=== PATIENT | female | born 1975 | race Caucasian/White ===

== ENCOUNTER 2018-01-31 12:13 | Inpatient (IN) | payer OTHER ==
[2018-01-31 12:50] LABS: BASO # 0.1 10^3/uL (0.0-0.2); BASO % 0.7 % (0.0-1.0); EOS # 0.2 10^3/uL (0.0-0.50); EOS % 2.4 % (0.0-3.0); HEMATOCRIT 27.6 % (36.0-47.0); HEMOGLOBIN 7.7 g/dl (12.0-15.5); IMMATURE GRANULOCYTE % 0.3 % (0-3.0); LYMPH # 2.4 10^3/uL (1.5-4.5); LYMPH % 31.9 % (24.0-44.0); MEAN CORPUSCULAR HEMOGLOBIN 18.4 pg (27.0-33.0); MEAN CORPUSCULAR HGB CONC 27.9 g/dl (32.0-36.5); MEAN CORPUSCULAR VOLUME 65.9 fl (80.0-96.0); MONO # 0.5 10^3/uL (0.0-0.8); MONO % 6.5 % (0.0-5.0); NEUTROPHILS # 4.4 10^3/uL (1.8-7.7); NEUTROPHILS % 58.2 % (36.0-66.0); PLATELET COUNT, AUTOMATED 498 10^3/uL (150-450); RED BLOOD COUNT 4.19 10^6/uL (4.00-5.40); RED CELL DISTRIBUTION WIDTH 17.6 % (11.5-14.5); WHITE BLOOD COUNT 7.6 10^3/uL (4.0-10.0)
[2018-01-31 12:54] LABS: PARTIAL THROMBOPLASTIN TIME 26.6 SECONDS (25.4-37.6); PROTHROMBIN TIME 13.3 SECONDS (12.1-14.4)
[2018-01-31 13:05] LABS: ALBUMIN 3.3 GM/DL (3.2-5.2); ALBUMIN/GLOBULIN RATIO 0.79 (1.00-1.93); ALKALINE PHOSPHATASE 111 U/L (45-117); ALT/SGPT 16 U/L (12-78); ANION GAP 9 MEQ/L (8-16); AST/SGOT 13 U/L (7-37); BILIRUBIN,DIRECT < 0.1 MG/DL (0.0-0.2); BILIRUBIN,TOTAL 0.2 MG/DL (0.2-1.0); BLOOD UREA NITROGEN 9 MG/DL (7-18); CALCIUM LEVEL 8.3 MG/DL (8.5-10.1); CARBON DIOXIDE LEVEL 27 MEQ/L (21-32); CHLORIDE LEVEL 104 MEQ/L (98-107); CK-MB VALUE MASS < 1.0 NG/ML (<3.6); CPK CREATINE PHOSPHOKINASE 98 U/L (26-192); CREATININE FOR GFR 0.74 MG/DL (0.55-1.30); GLOMERULAR FILTRATION RATE > 60.0 (>58); GLUCOSE, FASTING 89 MG/DL (70-100); LIPASE 167 U/L (73-393); MB/CK RELATIVE INDEX 1.02 (< OR =4); POTASSIUM SERUM 3.8 MEQ/L (3.5-5.1); SODIUM LEVEL 140 MEQ/L (136-145); TOTAL PROTEIN 7.5 GM/DL (6.4-8.2); TROPONIN I < 0.02 NG/ML (< 0.10)
[2018-01-31] MEDS: METOPROLOL TART 25 MG TABLET PO (14:40)
[2018-01-31] MEDS: ASPIRIN 325 MG TAB PO (14:47)
[2018-01-31 16:15] LABS: HEMATOCRIT 26.6 % (36.0-47.0); HEMOGLOBIN 7.3 g/dl (12.0-15.5); MEAN CORPUSCULAR HGB CONC 27.4 g/dl (32.0-36.5); MEAN CORPUSCULAR VOLUME 65.7 fl (80.0-96.0); PLATELET COUNT, AUTOMATED 461 10^3/uL (150-450); RED BLOOD COUNT 4.05 10^6/uL (4.00-5.40); RED CELL DISTRIBUTION WIDTH 17.3 % (11.5-14.5); WHITE BLOOD COUNT 6.7 10^3/uL (4.0-10.0)
[2018-01-31 16:48] LABS: CK-MB VALUE MASS < 1.0 NG/ML (<3.6); CPK CREATINE PHOSPHOKINASE 85 U/L (26-192); MB/CK RELATIVE INDEX 1.18 (< OR =4); TROPONIN I < 0.02 NG/ML (< 0.10)
[2018-01-31] MEDS ORDERED: ISOVUE-370 76% 100ML VIAL (Q9967) As Ordered (18:01)
[2018-01-31 18:53] LABS: FERRITIN 2 NG/ML (8-252); IRON (FE) 14 UG/DL (50-170); PERCENT SATURATION 2.9 % (13.2-45.0); TOTAL IRON BINDING CAPACITY 475 UG/DL (250-450)
[2018-01-31] MEDS: LABETALOL HCL 100 MG/20 ML VIAL IV ×2 (18:53→19:30)
[2018-01-31 19:04] LABS: RETIC HEMOGLOBIN EQUIVALENT 17.2 pg (24-36); RETICULOCYTE # 89.3 10^9/L (17-77); RETICULOCYTE % 2.1 % (0.5-1.5)
[2018-01-31 19:22] LABS: IMMEDIATE SPIN CROSSMATCH 1 2
[2018-01-31] MEDS ORDERED: ACETAMINOPHEN TAB 650MG DOSE (2X325MG) PO (20:30)
[2018-01-31] MEDS ORDERED: BISACODYL 5 MG TAB PO (20:30)
[2018-02-01 06:11] LABS: HEMATOCRIT 31.5 % (36.0-47.0); HEMOGLOBIN 8.9 g/dl (12.0-15.5); MEAN CORPUSCULAR HEMOGLOBIN 19.4 pg (27.0-33.0); MEAN CORPUSCULAR HGB CONC 28.3 g/dl (32.0-36.5); MEAN CORPUSCULAR VOLUME 68.8 fl (80.0-96.0); PLATELET COUNT, AUTOMATED 478 10^3/uL (150-450); RED BLOOD COUNT 4.58 10^6/uL (4.00-5.40); RED CELL DISTRIBUTION WIDTH 20.4 % (11.5-14.5); WHITE BLOOD COUNT 8.1 10^3/uL (4.0-10.0)
[2018-02-01 06:25] LABS: ESTIMATED AVERAGE GLUCOSE 111 MG/DL (60-110); HEMOGLOBIN A1c 5.5 %
[2018-02-01 06:30] LABS: ANION GAP 9 MEQ/L (8-16); BLOOD UREA NITROGEN 9 MG/DL (7-18); CALCIUM LEVEL 8.1 MG/DL (8.5-10.1); CARBON DIOXIDE LEVEL 29 MEQ/L (21-32); CHLORIDE LEVEL 105 MEQ/L (98-107); CHOLESTEROL LEVEL 149 MG/DL (<200); CHOLESTEROL RISK RATIO 4.806 (<5); CREATININE FOR GFR 0.79 MG/DL (0.55-1.30); GLOMERULAR FILTRATION RATE > 60.0 (>58); GLUCOSE, FASTING 90 MG/DL (70-100); HDL CHOLESTEROL 31 MG/DL (>40); LDL CHOLESTEROL 93 MG/DL (<100); NON-HDL-C 118 MG/DL; POTASSIUM SERUM 3.8 MEQ/L (3.5-5.1); SODIUM LEVEL 143 MEQ/L (136-145); TRIGLYCERIDES LEVEL 125 MG/DL (<150)
[2018-02-01] MEDS: FERROUS GLUCONATE 324 MG TAB PO (08:33)
[2018-02-01] MEDS: amLODIPine 10 MG TAB PO (08:36)
[2018-02-01] MEDS ORDERED: amLODIPine 5 MG TAB PO (09:00)
[2018-02-01] MEDS: SENOKOT S TAB PO (09:55)
[2018-02-01] MEDS: ASCORBIC ACID 250 MG TAB PO (09:55)
[2018-02-01 12:19] LABS: HEMATOCRIT 31.6 % (36.0-47.0); HEMOGLOBIN 9.2 g/dl (12.0-15.5)
== END 2018-02-01 14:21 | disposition home or self-care (01) | DRG 663 ==
LOC: M ED 12:13 → M ED INP 20:27 → M MSPAV 23:38
PROVIDERS: Hospitalist; Pediatrics
PROC: 30233N1 Transfusion of Nonautologous Red Blood Cells into Peripheral Vein, Percutaneous Approach (ICD-10-PCS; principal; 2018-01-31)
DX: D64.9 Anemia, unspecified (principal); Z68.42 Body mass index [BMI] 45.0-49.9, adult; I10 Essential (primary) hypertension; Z91.040 Latex allergy status; Z91.013 Allergy to seafood; E66.9 Obesity, unspecified; G25.81 Restless legs syndrome; N92.0 Excessive and frequent menstruation with regular cycle; Z79.899 Other long term (current) drug therapy; I16.0 Hypertensive urgency

== ENCOUNTER 2018-02-05 14:00 | Emergency (ER) | payer OTHER ==
[2018-02-05 16:33] LABS: BASO # 0.1 10^3/uL (0.0-0.2); BASO % 0.5 % (0.0-1.0); EOS # 0.2 10^3/uL (0.0-0.50); EOS % 2.4 % (0.0-3.0); HEMATOCRIT 35.9 % (36.0-47.0); HEMOGLOBIN 10.2 g/dl (12.0-15.5); IMMATURE GRANULOCYTE % 0.2 % (0-3.0); LYMPH # 2.5 10^3/uL (1.5-4.5); LYMPH % 24.5 % (24.0-44.0); MEAN CORPUSCULAR HGB CONC 28.4 g/dl (32.0-36.5); MEAN CORPUSCULAR VOLUME 70.3 fl (80.0-96.0); MONO # 0.6 10^3/uL (0.0-0.8); MONO % 5.6 % (0.0-5.0); NEUTROPHILS # 6.8 10^3/uL (1.8-7.7); NEUTROPHILS % 66.8 % (36.0-66.0); PLATELET COUNT, AUTOMATED 500 10^3/uL (150-450); RED BLOOD COUNT 5.11 10^6/uL (4.00-5.40); RED CELL DISTRIBUTION WIDTH 21.8 % (11.5-14.5); WHITE BLOOD COUNT 10.2 10^3/uL (4.0-10.0)
[2018-02-05 17:04] LABS: ANION GAP 6 MEQ/L (8-16); BLOOD UREA NITROGEN 11 MG/DL (7-18); CALCIUM LEVEL 8.6 MG/DL (8.5-10.1); CARBON DIOXIDE LEVEL 29 MEQ/L (21-32); CHLORIDE LEVEL 103 MEQ/L (98-107); CK-MB VALUE MASS < 1.0 NG/ML (<3.6); CPK CREATINE PHOSPHOKINASE 103 U/L (26-192); CREATININE FOR GFR 0.73 MG/DL (0.55-1.30); GLOMERULAR FILTRATION RATE > 60.0 (>58); GLUCOSE, FASTING 94 MG/DL (70-100); MB/CK RELATIVE INDEX 0.97 (< OR =4); POTASSIUM SERUM 3.8 MEQ/L (3.5-5.1); SODIUM LEVEL 138 MEQ/L (136-145); TROPONIN I < 0.02 NG/ML (< 0.10)
== END 2018-02-05 17:59 | disposition home or self-care (01) ==
LOC: M ED 14:00
DX: I10 Essential (primary) hypertension (principal); D50.9 Iron deficiency anemia, unspecified; Z91.040 Latex allergy status; Z91.013 Allergy to seafood; Z79.899 Other long term (current) drug therapy
CPT/HCPCS: 70450

== ENCOUNTER → 2018-02-15 | Outpatient (REF) | payer OTHER ==
[2018-02-15 15:57] LABS: BASO % 0.4 % (0.0-1.0); EOS # 0.2 10^3/uL (0.0-0.50); EOS % 2.4 % (0.0-3.0); HEMATOCRIT 35.3 % (36.0-47.0); HEMOGLOBIN 10.4 g/dl (12.0-15.5); IMMATURE GRANULOCYTE % 0.2 % (0-3.0); LYMPH # 2.3 10^3/uL (1.5-4.5); LYMPH % 24.1 % (24.0-44.0); MEAN CORPUSCULAR HEMOGLOBIN 21.2 pg (27.0-33.0); MEAN CORPUSCULAR HGB CONC 29.5 g/dl (32.0-36.5); MONO # 0.7 10^3/uL (0.0-0.8); MONO % 7.3 % (0.0-5.0); NEUTROPHILS # 6.2 10^3/uL (1.8-7.7); NEUTROPHILS % 65.6 % (36.0-66.0); PLATELET COUNT, AUTOMATED 499 10^3/uL (150-450); RED CELL DISTRIBUTION WIDTH 25.6 % (11.5-14.5); WHITE BLOOD COUNT 9.5 10^3/uL (4.0-10.0)
== END ==
LOC: M SFHCPLAZ 13:46
DX: D64.9 Anemia, unspecified (principal)

== ENCOUNTER → 2018-02-19 | Outpatient (REF) | payer OTHER ==
[2018-02-19 14:12] LABS: MAU/CREAT RATIO 22.1 MCG/MG (0.0-30.0)
== END ==
LOC: M SFHCPLAZ 08:51
DX: I10 Essential (primary) hypertension (principal)

== ENCOUNTER → 2018-02-22 | Outpatient (REF) | payer OTHER | LOC: M SFHCPLAZ 10:13 | DX: I10 Essential (primary) hypertension (principal) ==

== ENCOUNTER → 2018-03-05 | Outpatient (CLI) | payer OTHER | LOC: M RAD 08:56 | DX: I10 Essential (primary) hypertension (principal) | CPT/HCPCS: 76775 ==

== ENCOUNTER → 2018-03-05 | Outpatient (REF) | payer OTHER ==
[2018-03-05 12:48] LABS: ANION GAP 6 MEQ/L (8-16); BLOOD UREA NITROGEN 11 MG/DL (7-18); CALCIUM LEVEL 8.5 MG/DL (8.5-10.1); CARBON DIOXIDE LEVEL 32 MEQ/L (21-32); CHLORIDE LEVEL 100 MEQ/L (98-107); CREATININE FOR GFR 0.65 MG/DL (0.55-1.30); GLOMERULAR FILTRATION RATE > 60.0 (>58); GLUCOSE, FASTING 92 MG/DL (70-100); POTASSIUM SERUM 3.8 MEQ/L (3.5-5.1); SODIUM LEVEL 138 MEQ/L (136-145)
[2018-03-05 13:03] LABS: MALB URINE SIEMENS 15.2 MG/L; MAU/CREAT RATIO 12.8 MCG/MG (0.0-30.0)
== END ==
LOC: M SFHCPLAZ 10:02
DX: I10 Essential (primary) hypertension (principal)
CPT/HCPCS: 82043

== ENCOUNTER → 2018-04-18 | Outpatient (REF) | payer OTHER ==
[~2018-04-18] MED LIST: AMLO10TA5 PO; ASCO25TA PO; FERR32TA PO; REQU0.5T PO; SENN1TAB2 PO
[2018-04-18 17:51] LABS: BASO % 0.4 % (0.0-1.0); EOS # 0.3 10^3/uL (0.0-0.50); EOS % 2.5 % (0.0-3.0); HEMATOCRIT 36.9 % (36.0-47.0); HEMOGLOBIN 11.5 g/dl (12.0-15.5); LYMPH % 19.3 % (24.0-44.0); MEAN CORPUSCULAR HEMOGLOBIN 25.3 pg (27.0-33.0); MEAN CORPUSCULAR HGB CONC 31.2 g/dl (32.0-36.5); MEAN CORPUSCULAR VOLUME 81.1 fl (80.0-96.0); MONO # 0.6 10^3/uL (0.0-0.8); MONO % 5.8 % (0.0-5.0); NEUTROPHILS # 7.5 10^3/uL (1.8-7.7); NEUTROPHILS % 71.6 % (36.0-66.0); PLATELET COUNT, AUTOMATED 452 10^3/uL (150-450); RED BLOOD COUNT 4.55 10^6/uL (4.00-5.40); WHITE BLOOD COUNT 10.5 10^3/uL (4.0-10.0)
== END ==
LOC: M SFHCPLAZ 16:01
DX: D64.9 Anemia, unspecified (principal); E03.8 Other specified hypothyroidism

== ENCOUNTER → 2018-04-23 | Outpatient (REF) | payer OTHER ==
[2018-04-24 17:34] LABS: FOLATE 10.2 NG/ML (>5.4)
== END ==
LOC: M SFHCPLAZ 08:39
DX: D64.9 Anemia, unspecified (principal)

== ENCOUNTER 2018-05-10 08:58 | Day surgery (SDC) | payer OTHER ==
[~2018-05-10] VITALS: Ht 154.9 cm; Wt 114.7 kg
[~2018-05-10 08:58] MED LIST changes: +LOSA25TA14 PO; +PRIL20TA2 PO
[2018-05-10] MEDS ORDERED: NS 1,000 ML IV ONE (09:30)
[2018-05-10] MEDS ORDERED: CENTCHW4 PO (09:30)
[2018-05-10] MEDS ORDERED: PROPOFOL 200 MG/20 ML VIAL As Ordered ONE (09:58)
[2018-05-10] MEDS ORDERED: fentaNYL 100 MCG/2 ML INJECTION (J3010) As Ordered ONE (09:58)
[2018-05-10] MEDS ORDERED: LIDOCAINE 2% INJ 100 MG/5 ML SDV (FOR ANES.) As Ordered ONE (09:58)
--- NOTE | 2018-05-10 10:26 | ROOR ---
Patient Name: Elana Chappell Procedure Date: 05/10/2018 9:41 AM Date of : 1975 Age: 42 Room: [facility] Gender: Female Note Status: Finalized Procedure: Colonoscopy Indications: Chronic diarrhea, Iron deficiency anemia Providers: Janes Haile MD Referring MD: Flor Saunders Requesting Provider: Medicines: Monitored Anesthesia Care Complications: No immediate complications. Procedure: Pre-Anesthesia Assessment: - Prior to the procedure, a History and Physical was performed, and patient medications and allergies were reviewed. The patient is competent. The risks and benefits of the procedure and the sedation options and risks were discussed with the patient. All questions were answered and informed consent was obtained. Patient identification and proposed procedure were verified by the physician, the nurse and the anesthesiologist in the procedure room. Mental Status Examination: alert and oriented. Airway Examination: normal oropharyngeal airway and neck mobility. Respiratory Examination: clear to auscultation. CV Examination: normal. Prophylactic Antibiotics: The patient does not require prophylactic antibiotics. Prior Anticoagulants: The patient has taken no previous anticoagulant or antiplatelet agents. ASA Grade Assessment: III - A patient with severe systemic disease. After reviewing the risks and benefits, the patient was deemed in satisfactory condition to undergo the procedure. The anesthesia plan was to use monitored anesthesia care (MAC). Immediately prior to administration of medications, the patient was re-assessed for adequacy to receive sedatives. The heart rate, respiratory rate, oxygen saturations, blood pressure, adequacy of pulmonary ventilation, and response to care were monitored throughout the procedure. The physical status of the patient was re-assessed after the procedure. The Colonoscope was introduced through the anus and advanced to the terminal ileum, with identification of the appendiceal orifice and IC valve. The colonoscopy was performed without difficulty. The patient tolerated the procedure well. The quality of the bowel preparation was good. The terminal ileum, ileocecal valve, appendiceal orifice, and rectum were photographed. Scope insertion time was 3 minutes. Scope withdrawal time was 9 minutes. The total duration of the procedure was 12 minutes. Findings: The perianal and digital rectal examinations were normal. The terminal ileum appeared normal. Normal mucosa was found in the entire colon. Biopsies for histology were taken with a cold forceps from the right colon, left colon, transverse colon and rectosigmoid colon for evaluation of microscopic colitis. Verification of patient identification for the specimen was done by the physician and nurse using the patient's name, date and medical record number. Estimated blood loss was minimal. Non-bleeding external and internal hemorrhoids were found during retroflexion. The hemorrhoids were medium-sized. No other significant abnormalities were identified in a careful examination of the remainder of the colon. Impression: - The examined portion of the ileum was normal. - Normal mucosa in the entire examined colon. Biopsied. - Non-bleeding external and internal hemorrhoids. Recommendation: - Patient has a contact number available for emergencies. The signs and symptoms of potential delayed complications were discussed with the patient. Return to normal activities tomorrow. Written discharge instructions were provided to the patient. - High fiber diet. - Continue present medications. - Await pathology results. - Repeat colonoscopy in 10 years for screening purposes. - Based on the biopsy results you will receive a phone call from GI clinic in 2-3 weeks to review the pathology results AND/OR your results will be faxed to your Primary care physician. - Return to primary care physician. Janes Haile MD Janes Haile MD 05/10/2018 10:26:00 AM This report has been signed electronically. Number of Addenda: 0 Note Initiated On: 05/10/2018 9:41 AM Estimated Blood Loss: Estimated blood loss was minimal.
--- NOTE | 2018-05-10 10:28 | ROOR ---
Patient Name: Elana Chappell Procedure Date: 05/10/2018 9:40 AM Date of : 1975 Age: 42 Room: [facility] Gender: Female Note Status: Finalized Procedure: Upper GI endoscopy Indications: Iron deficiency anemia Providers: Janes Haile MD Referring MD: Flor Saunders Requesting Provider: Medicines: Monitored Anesthesia Care Complications: No immediate complications. Procedure: Pre-Anesthesia Assessment: - Prior to the procedure, a History and Physical was performed, and patient medications and allergies were reviewed. The patient is competent. The risks and benefits of the procedure and the sedation options and risks were discussed with the patient. All questions were answered and informed consent was obtained. Patient identification and proposed procedure were verified by the physician, the nurse and the anesthesiologist in the procedure room. Mental Status Examination: alert and oriented. Airway Examination: normal oropharyngeal airway and neck mobility. Respiratory Examination: clear to auscultation. CV Examination: normal. Prophylactic Antibiotics: The patient does not require prophylactic antibiotics. Prior Anticoagulants: The patient has taken no previous anticoagulant or antiplatelet agents. ASA Grade Assessment: III - A patient with severe systemic disease. After reviewing the risks and benefits, the patient was deemed in satisfactory condition to undergo the procedure. The anesthesia plan was to use monitored anesthesia care (MAC). Immediately prior to administration of medications, the patient was re-assessed for adequacy to receive sedatives. The heart rate, respiratory rate, oxygen saturations, blood pressure, adequacy of pulmonary ventilation, and response to care were monitored throughout the procedure. The physical status of the patient was re-assessed after the procedure. The Endoscope was introduced through the mouth, and advanced to the second part of duodenum. The upper GI endoscopy was accomplished without difficulty. The patient tolerated the procedure well. Findings: The examined esophagus was normal. The Z-line was regular and was found 40 cm from the incisors. Patchy moderate inflammation characterized by erythema and granularity was found in the gastric antrum. Biopsies were taken with a cold forceps for Helicobacter pylori testing. Verification of patient identification for the specimen was done by the physician and nurse using the patient's name, date and medical record number. Patchy moderate inflammation characterized by congestion (edema), erythema and granularity was found in the duodenal bulb. Biopsies for histology were taken with a cold forceps for evaluation of celiac disease. The second portion of the duodenum was normal. Impression: - Normal esophagus. - Z-line regular, 40 cm from the incisors. - Gastritis. Biopsied. - Duodenitis. Biopsied. - Normal second portion of the duodenum. Recommendation: - Patient has a contact number available for emergencies. The signs and symptoms of potential delayed complications were discussed with the patient. Return to normal activities tomorrow. Written discharge instructions were provided to the patient. - Resume previous diet. - Continue present medications. - Await pathology results. - Based on the biopsy results you will receive a phone call from GI clinic in 2-3 weeks to review the pathology results AND/OR your results will be faxed to your Primary care physician. - Return to primary care physician. Janes Haile MD Janes Haile MD 05/10/2018 10:27:50 AM This report has been signed electronically. Number of Addenda: 0 Note Initiated On: 05/10/2018 9:40 AM Estimated Blood Loss: Estimated blood loss was minimal.
[2018-05-10 10:45] VITALS: BP 146/84
== END 2018-05-10 11:05 | disposition home or self-care (01) ==
LOC: M OPP 08:58
PROVIDERS: ATTEND Internal Medicine Gastroenterology
DX: K64.8 Other hemorrhoids (principal); K52.9 Noninfective gastroenteritis and colitis, unspecified; R19.7 Diarrhea, unspecified; D50.9 Iron deficiency anemia, unspecified; K29.70 Gastritis, unspecified, without bleeding; K29.80 Duodenitis without bleeding
CPT/HCPCS: 43239; 45380; 88305; J3010

== ENCOUNTER → 2018-10-24 | Outpatient (REF) | payer OTHER ==
[~2018-10-24] MED LIST changes: -ASCO25TA PO; +CENTCHW4 PO; -SENN1TAB2 PO; +SENN1TAB40 PO; +VITA1TAB23 PO
[2018-10-24 17:56] LABS: BASO % 0.4 % (0.0-1.0); EOS # 0.2 10^3/uL (0.0-0.50); EOS % 1.8 % (0.0-3.0); HEMATOCRIT 41.6 % (36.0-47.0); HEMOGLOBIN 13.5 g/dl (12.0-15.5); LYMPH # 2.5 10^3/uL (1.5-4.5); LYMPH % 26.3 % (24.0-44.0); MEAN CORPUSCULAR HEMOGLOBIN 28.6 pg (27.0-33.0); MEAN CORPUSCULAR HGB CONC 32.5 g/dl (32.0-36.5); MEAN CORPUSCULAR VOLUME 88.1 fl (80.0-96.0); MONO # 0.7 10^3/uL (0.0-0.8); MONO % 7.4 % (0.0-5.0); NEUTROPHILS # 5.9 10^3/uL (1.8-7.7); NEUTROPHILS % 63.8 % (36.0-66.0); PLATELET COUNT, AUTOMATED 406 10^3/uL (150-450); RED BLOOD COUNT 4.72 10^6/uL (4.00-5.40); WHITE BLOOD COUNT 9.3 10^3/uL (4.0-10.0)
[2018-10-24 18:41] LABS: HEMOGLOBIN A1c 5.7 %
== END ==
LOC: M LABDRAWP 17:18
PROVIDERS: ATTEND Hospitalist
DX: D64.9 Anemia, unspecified (principal); R63.5 Abnormal weight gain

== ENCOUNTER 2020-01-26 10:31 | Emergency (ER) | payer OTHER ==
[~2020-01-26] VITALS: Ht 157.5 cm; Wt 117.8 kg
[~2020-01-26 10:31] MED LIST changes: -AMLO10TA5 PO; +AMLO1TAB25 PO; +ASCO250T20 PO; +SENN-53 PO; -SENN1TAB40 PO; -VITA1TAB23 PO
[2020-01-26 11:46] LABS: HEMATOCRIT 43.2 % (36.0-47.0); HEMOGLOBIN 14.2 g/dl (12.0-15.5); MEAN CORPUSCULAR HEMOGLOBIN 28.7 pg (27.0-33.0); MEAN CORPUSCULAR HGB CONC 32.9 g/dl (32.0-36.5); MEAN CORPUSCULAR VOLUME 87.4 fl (80.0-96.0); PLATELET COUNT, AUTOMATED 371 10^3/uL (150-450); RED BLOOD COUNT 4.94 10^6/uL (4.00-5.40); WHITE BLOOD COUNT 9.8 10^3/uL (4.0-10.0)
--- NOTE | 2020-01-26 12:19 | REPVR ---
PROCEDURE INFORMATION: Exam: CT Head Without Contrast Exam date and time: 01/26/2020 10:58 AM Age: 44 years old Clinical indication: Pain; Headache; Additional info: Paresthesias TECHNIQUE: Imaging protocol: Computed tomography of the head without contrast. Radiation optimization: All CT scans at this facility use at least one of these dose optimization techniques: automated exposure control; mA and/or kV adjustment per patient size (includes targeted exams where dose is matched to clinical indication); or iterative reconstruction. COMPARISON: CT Head without contrast 02/05/2018 3:51 PM FINDINGS: Brain: Normal. No hemorrhage. Unremarkable white matter. No mass effect. Cerebral ventricles: No ventriculomegaly. Bones/joints: Unremarkable. No acute fracture. Paranasal sinuses: Visualized sinuses are unremarkable. No fluid levels. Mastoid air cells: Visualized mastoid air cells are well aerated. Soft tissues: Unremarkable. IMPRESSION: No acute intracranial abnormality. Electronically signed by: Archana Babb On 01/26/2020 12:19:32 PM
--- NOTE | 2020-01-26 12:20 | REPVR ---
PROCEDURE INFORMATION: Exam: XR Chest, 1 View Exam date and time: 01/26/2020 12:17 PM Age: 44 years old Clinical indication: Other: Elevated BP TECHNIQUE: Imaging protocol: XR of the chest Views: 1 view. COMPARISON: CT Chest with contrast 01/31/2018 5:59 PM FINDINGS: Lungs: Unremarkable. No consolidation. Pleural space: Unremarkable. No pleural effusion. No pneumothorax. Heart/Mediastinum: Unremarkable. No cardiomegaly. Bones/joints: Unremarkable. IMPRESSION: No acute findings. Electronically signed by: Archana Babb On 01/26/2020 12:20:39 PM
[2020-01-26 12:31] LABS: CK-MB VALUE MASS < 1.0 NG/ML (<3.6); CPK CREATINE PHOSPHOKINASE 94 U/L (26-192); MB/CK RELATIVE INDEX 1.06 (< OR =4); TROPONIN I < 0.02 NG/ML (< 0.10)
[2020-01-26] MEDS ORDERED: LABETALOL 100MG/20ML VIAL IV STA (12:33)
[2020-01-26] MEDS ORDERED: KETOROLAC 30 MG/ML 1ML VIAL IV ONE (13:15)
[2020-01-26] MEDS ORDERED: amLODIPine 5 MG TAB PO ONE ×2 (13:15→15:30)
[2020-01-26] MEDS ORDERED: LOSARTAN 25 MG TAB PO ONE (13:15)
[2020-01-26 15:47] VITALS: BP 189/89
[2020-01-26] MEDS ORDERED: AMLO1TAB25 PO (16:11)
[2020-01-26] MEDS ORDERED: LOSA25TA14 PO (16:11)
[2020-01-26 16:46] VITALS: BP 182/84
--- NOTE | 2020-01-27 08:14 | ECGEPIP ---
[facility] - ED Test Date: 2020-01-26 Pat Name: STEPHIE RAMÍREZ Department: Room: - Gender: Female Resourcing Advisor: ABDULLAHI : 1975 Requested By: ELEAZAR Rico Order Number: [id number] Reading MD: Abdulaziz Wills Measurements Intervals Bolt Rate: 72 P: 43 NJ: 175 QRS: 47 QRSD: 101 T: 74 QT: 395 QTc: 434 Interpretive Statements SINUS RHYTHM NONSPECIFIC T-WAVE ABNORMALITY SIMILAR TO 02/05/18 Electronically Signed on 01-27-2020 8:14:07 EDT by Abdulaziz Wills
== END 2020-01-26 16:59 | disposition home or self-care (01) ==
LOC: M ED 10:31
DX: I11.9 Hypertensive heart disease without heart failure (principal); R51.9 Headache, unspecified; K21.9 Gastro-esophageal reflux disease without esophagitis; Z79.899 Other long term (current) drug therapy; Z91.040 Latex allergy status; Z91.013 Allergy to seafood
CPT/HCPCS: 70450; 71045; 80047; 82550; 82553; 84443; 84484; 84702; 85027; 93005; 96374; 99284; J1885

== ENCOUNTER → 2020-10-01 | Outpatient (CLI) | payer OTHER ==
--- NOTE | 2020-10-05 13:54 | SLEEPCENT ---
NOCTURNAL POLYSOMNOGRAPHY DATE: 10/01/2020 ORDERED BY: Chuy Richardson. Nocturnal polysomnography was performed for evaluation of sleep physiology in this patient with a history of excessive somnolence and morning headaches. 7 hours and 47 minutes of data were reviewed. There were 406.5 minutes of sleep identified. Sleep latency was short at 3 minutes. REM latency was prolonged at 113 minutes. Sleep architecture showed fragmentation. There were 2 REM cycles noted. Overall sleep efficiency 88.6%. The electrocardiogram showed a sinus rhythm with an average heart rate of 80 beats per minute. EEG showed normal waveforms for awake and sleep. There were 383 respiratory events identified of 10 seconds in duration or greater for an apnea-hypopnea index of 56.5. The events were obstructive, not exclusive to sleep stage nor body posture. Arousals from respiratory events occurred 13.4 times per hour, and oxygen desaturations were seen into the low 80s. There was some minor limb activity. Limb movement arousal index was 2.4. IMPRESSION: Severe obstructive sleep apnea syndrome (G47.33), apnea-hypopnea index 56.5. RECOMMENDATION: The patient should be encouraged to return to [facility] for [facility]. In the interim, alcohol and sedative avoidance should be practiced, and caution exercised during the operation of motor vehicles. cc: Dr. Bonds
== END ==
LOC: M SLEEP 20:00
PROVIDERS: ATTEND Physician Assistant
DX: G47.33 Obstructive sleep apnea (adult) (pediatric) (principal)

== ENCOUNTER → 2020-10-12 | Outpatient (CLI) | payer OTHER ==
[~2020-10-12] MED LIST changes: +PROHANCE 279.3MG/ML 15ML VIAL As Ordered ONE; +PROHANCE 279.3MG/ML 5ML VIAL As Ordered ONE
--- NOTE | 2020-10-13 09:37 | REP ---
INDICATION: PAIN IN LEFT KNEE. COMPARISON: None. TECHNIQUE: Pre and post contrast 3T MRI of the was performed utilizing various sequences. Gadolinium utilized: 20 cc of ProHance FINDINGS: The anterior and posterior horns of the lateral meniscus are within normal limits. The anterior and posterior horns of the medial meniscus are within normal limits. The anterior and posterior cruciate ligaments are intact. The quadriceps and patellar tendons are intact. The medial and lateral collateral ligaments are intact. The medial and lateral patellar retinacula are intact. There is [id number] thinning and irregularity involving the articular cartilages particularly affecting the patellar medial facet. There is a slight joint effusion. There is no Spencer's cyst. The marrow signal is within normal limits. There is lateral parapatellar plica. IMPRESSION: 1. There is no evidence of acute internal derangement. 2. Chondromalacia as described above. 3. Slight joint effusion. 4. Lateral parapatellar plica <Electronically signed by Param Treadwell > 10/13/20 [id number]
== END ==
LOC: M RAD 18:08
PROVIDERS: ATTEND Orthopaedic Surgery
DX: M25.562 Pain in left knee (principal); M25.462 Effusion, left knee; M94.262 Chondromalacia, left knee
CPT/HCPCS: 73723; A9576

== ENCOUNTER → 2020-11-12 | Outpatient (CLI) | payer OTHER ==
[~2020-11-12] MED LIST changes: +LOSA25TA13 PO; -LOSA25TA14 PO; -PROHANCE 279.3MG/ML 15ML VIAL As Ordered ONE; -PROHANCE 279.3MG/ML 5ML VIAL As Ordered ONE
== END ==
LOC: M SLEEP 20:00
PROVIDERS: ATTEND Physician Assistant
DX: G47.33 Obstructive sleep apnea (adult) (pediatric) (principal)

== ENCOUNTER → 2021-03-14 | Outpatient (CLI) | payer OTHER ==
[~2021-03-14] MED LIST changes: -LOSA25TA13 PO; +LOSA25TA14 PO
== END ==
LOC: M LABSMTC 11:13
PROVIDERS: ATTEND Pediatrics
DX: Z20.822 Contact with and (suspected) exposure to COVID-19 (principal)
CPT/HCPCS: C9803; U0003

== ENCOUNTER → 2022-09-05 | Outpatient (CLI) | payer OTHER ==
[~2022-09-05] MED LIST changes: +LOSA25TA13 PO; -LOSA25TA14 PO
[2022-09-05 13:43] LABS: BASO % 0.4 % (0.0-1.0); EOS # 0.2 10^3/uL (0.0-0.5); EOS % 1.8 % (0.0-3.0); HEMATOCRIT 40.8 % (36.0-47.0); HEMOGLOBIN 13.6 g/dl (12.0-15.5); LYMPH # 2.6 10^3/uL (1.5-5.0); LYMPH % 26.5 % (24.0-44.0); MEAN CORPUSCULAR HEMOGLOBIN 29.4 pg (27.0-33.0); MEAN CORPUSCULAR HGB CONC 33.3 g/dl (32.0-36.5); MEAN CORPUSCULAR VOLUME 88.1 fl (80.0-96.0); MONO # 0.8 10^3/uL (0.0-0.8); MONO % 7.9 % (2.0-8.0); NEUTROPHILS # 6.1 10^3/uL (1.5-8.5); NEUTROPHILS % 63.2 % (36.0-66.0); PLATELET COUNT, AUTOMATED 377 10^3/uL (150-450); RED BLOOD COUNT 4.63 10^6/uL (4.00-5.40); WHITE BLOOD COUNT 9.7 10^3/uL (4.0-10.0)
[2022-09-05 14:10] LABS: HEMOGLOBIN A1c 5.7 % (4.0-6.0)
[2022-09-05 14:16] LABS: ALBUMIN 3.4 G/DL (3.2-5.2); ALKALINE PHOSPHATASE 98 U/L (46-116); ALT/SGPT 20 U/L (7.0-40); AST/SGOT 16 U/L (<34); BILIRUBIN,TOTAL 0.3 MG/DL (0.3-1.2); BLOOD UREA NITROGEN 10 MG/DL (9-23); CALCIUM LEVEL 8.5 MG/DL (8.5-10.1); CARBON DIOXIDE LEVEL 29 MMOL/L (20-31); CHLORIDE LEVEL 101 MMOL/L (98-107); CHOLESTEROL LEVEL 188 MG/DL (<200); CHOLESTEROL RISK RATIO 4.67 (<5); CREATININE FOR GFR 0.63 MG/DL (0.55-1.30); GLOMERULAR FILTRATION RATE > 60.0 (>58); GLUCOSE, FASTING 116 MG/DL (60-100); HDL CHOLESTEROL 40.2 MG/DL (>40); IRON (FE) 48 UG/DL (50-170); NON-HDL-C 147.8 MG/DL; PERCENT SATURATION 13.6 % (13.2-45.0); SODIUM LEVEL 137 MMOL/L (136-145); TOTAL IRON BINDING CAPACITY 352 UG/DL (250-425); TRIGLYCERIDES LEVEL 209 MG/DL (<150)
[2022-09-05 14:18] LABS: FERRITIN 73.2 NG/ML (7.3-270.7); TOTAL 25(OH) VITAMIN D 19.6 NG/ML (20.0-100.0)
== END ==
LOC: M PLALAB 09:30
PROVIDERS: ATTEND Student in an Organized Health Care Education/Training Program
DX: Z00.00 Encounter for general adult medical examination without abnormal findings (principal); G47.33 Obstructive sleep apnea (adult) (pediatric); Z13.1 Encounter for screening for diabetes mellitus; Z86.2 Personal history of diseases of the blood and blood-forming organs and certain disorders involving the immune mechanism; R53.82 Chronic fatigue, unspecified

== ENCOUNTER 2023-03-07 08:29 | Emergency (ER) | payer OTHER ==
[~2023-03-07] VITALS: Ht 157.5 cm; Wt 130.8 kg
[2023-03-07 08:30] VITALS: BP 182/108; TEMP 97.3; O2SAT 98
[2023-03-07] MEDS ORDERED: NAPR220C14 PO (08:37)
[2023-03-07] MEDS ORDERED: BUSP5TA (08:37)
[2023-03-07] MEDS ORDERED: ESCITALOPRAM (08:37)
[2023-03-07] MEDS ORDERED: MIREIUD (08:40)
[2023-03-07] MEDS ORDERED: PIPERACILLIN/TAZOBACTAM SOD 4.5 GM in D5W MINI-BAG PLUS 50 ML IV ONE (09:45)
[2023-03-07] MEDS ORDERED: BOOSTRIX VACCINE (TETANUS/DIPHTH/ACEL. PERTUSSIS) 0.5ML SYR IM.IMMUN ONE (09:45)
[2023-03-07] MEDS ORDERED: ACETAMINOPHEN 325 MG TAB PO ONE (09:45)
[2023-03-07 10:49] LABS: BLOOD UREA NITROGEN 12 MG/DL (9-23); CALCIUM LEVEL 8.3 MG/DL (8.5-10.1); CARBON DIOXIDE LEVEL 28 MMOL/L (20-31); CHLORIDE LEVEL 102 MMOL/L (98-107); GLOMERULAR FILTRATION RATE > 60.0 (>58); GLUCOSE, FASTING 100 MG/DL (60-100); POTASSIUM SERUM 5.8 MMOL/L (3.5-5.1); SODIUM LEVEL 138 MMOL/L (136-145)
[2023-03-07 10:54] LABS: BASO % 0.4 % (0.0-1.0); EOS # 0.1 10^3/uL (0.0-0.5); EOS % 1.3 % (0.0-3.0); HEMATOCRIT 39.4 % (36.0-47.0); HEMOGLOBIN 13.5 g/dl (12.0-15.5); LYMPH # 2.2 10^3/uL (1.5-5.0); MEAN CORPUSCULAR HEMOGLOBIN 30.1 pg (27.0-33.0); MEAN CORPUSCULAR HGB CONC 34.3 g/dl (32.0-36.5); MEAN CORPUSCULAR VOLUME 87.8 fl (80.0-96.0); MONO # 0.7 10^3/uL (0.0-0.8); MONO % 6.2 % (2.0-8.0); NEUTROPHILS # 7.4 10^3/uL (1.5-8.5); NEUTROPHILS % 70.8 % (36.0-66.0); PLATELET COUNT, AUTOMATED 338 10^3/uL (150-450); RED BLOOD COUNT 4.49 10^6/uL (4.00-5.40); WHITE BLOOD COUNT 10.5 10^3/uL (4.0-10.0)
[2023-03-07 10:59] LABS: ERYTHROCYTE SEDIMENTATION RATE 40 mm/hr (0-20)
[2023-03-07] MEDS ORDERED: AMOX875T2 PO (12:11)
== END 2023-03-07 12:32 | disposition home or self-care (01) ==
LOC: M ED 08:29
DX: L03.114 Cellulitis of left upper limb (principal); W54.0XXA Bitten by dog, initial encounter; Y92.009 Unspecified place in unspecified non-institutional (private) residence as the place of occurrence of the external cause; Y93.9 Activity, unspecified; I10 Essential (primary) hypertension; Z91.040 Latex allergy status; Z91.013 Allergy to seafood; Z79.899 Other long term (current) drug therapy; Z79.1 Long term (current) use of non-steroidal anti-inflammatories (NSAID)
CPT/HCPCS: 73130; 80047; 80048; 85025; 85652; 86140; 90471; 90715; 96374; 99283; J2543

== ENCOUNTER 2023-04-27 18:39 | Emergency (ER) | payer OTHER ==
[~2023-04-27] VITALS: Ht 157.5 cm; Wt 128.7 kg
[~2023-04-27 18:39] MED LIST changes: +AMOX875T2 PO; +BUSP5TA; +ESCITALOPRAM; +MIREIUD; +NAPR220C14 PO
[2023-04-27 18:42] VITALS: TEMP 98.1
[2023-04-27] MEDS ORDERED: ROPI1TAB73 (18:53)
[2023-04-27] MEDS ORDERED: COLD30LI PO (18:53)
[2023-04-27] MEDS ORDERED: LEXA1TAB (18:53)
[2023-04-27] MEDS ORDERED: dilTIAZem 25MG/5ML VIAL IV STA ×2 (19:31→21:19)
[2023-04-27] MEDS ORDERED: NS 1,000 ML IV SCH (19:35)
[2023-04-27] MEDS ORDERED: ASPIRIN 81MG CHEW TABLET PO ONE (19:35)
[2023-04-27 20:26] VITALS: BP 197/97
[2023-04-27 20:31] LABS: BASO % 0.3 % (0.0-1.0); EOS # 0.1 10^3/uL (0.0-0.5); EOS % 0.5 % (0.0-3.0); HEMATOCRIT 41.5 % (36.0-47.0); HEMOGLOBIN 14.2 g/dl (12.0-15.5); LYMPH # 2.3 10^3/uL (1.5-5.0); LYMPH % 23.9 % (24.0-44.0); MEAN CORPUSCULAR HEMOGLOBIN 29.3 pg (27.0-33.0); MEAN CORPUSCULAR HGB CONC 34.2 g/dl (32.0-36.5); MEAN CORPUSCULAR VOLUME 85.7 fl (80.0-96.0); MONO # 0.5 10^3/uL (0.0-0.8); MONO % 4.8 % (2.0-8.0); NEUTROPHILS # 6.8 10^3/uL (1.5-8.5); NEUTROPHILS % 70.2 % (36.0-66.0); PLATELET COUNT, AUTOMATED 366 10^3/uL (150-450); RED BLOOD COUNT 4.84 10^6/uL (4.00-5.40); WHITE BLOOD COUNT 9.7 10^3/uL (4.0-10.0)
[2023-04-27 20:45] VITALS: O2SAT 99
[2023-04-27 21:01] LABS: CK-MB VALUE MASS < 1.0 NG/ML (<3.6); CPK CREATINE PHOSPHOKINASE 123 U/L (34-145); MB/CK RELATIVE INDEX 0.81 (< OR =4)
[2023-04-27 21:02] LABS: ALBUMIN 3.4 G/DL (3.2-5.2); ALKALINE PHOSPHATASE 83 U/L (46-116); ALT/SGPT 34 U/L (7.0-40); AST/SGOT 18 U/L (<34); BILIRUBIN,DIRECT 0.1 MG/DL (<0.4); BILIRUBIN,TOTAL 0.3 MG/DL (0.3-1.2); BLOOD UREA NITROGEN 11 MG/DL (9-23); CALCIUM LEVEL 8.6 MG/DL (8.5-10.1); CARBON DIOXIDE LEVEL 26 MMOL/L (20-31); CHLORIDE LEVEL 105 MMOL/L (98-107); CREATININE FOR GFR 0.64 MG/DL (0.55-1.30); GLOMERULAR FILTRATION RATE > 60.0 (>58); GLUCOSE, FASTING 97 MG/DL (60-100); SODIUM LEVEL 139 MMOL/L (136-145); TOTAL PROTEIN 7.3 G/DL (5.7-8.2)
[2023-04-27] MEDS ORDERED: LOSARTAN 25 MG TAB PO ONE (21:20)
[2023-04-27 21:30] VITALS: BP 142/90
== END 2023-04-27 22:36 | disposition home or self-care (01) ==
LOC: M ED 18:39
DX: I10 Essential (primary) hypertension (principal); Z79.811 Long term (current) use of aromatase inhibitors; Z79.899 Other long term (current) drug therapy

== ENCOUNTER → 2023-09-21 | Outpatient (CLI) | payer OTHER ==
[~2023-09-21] MED LIST changes: +COLD30LI PO; +LEXA1TAB; +ROPI1TAB73
[2023-09-21 14:35] LABS: BASO % 0.3 % (0.0-1.0); EOS # 0.2 10^3/uL (0.0-0.5); EOS % 1.5 % (0.0-3.0); HEMATOCRIT 40.9 % (36.0-47.0); HEMOGLOBIN 13.7 g/dl (12.0-15.5); LYMPH % 29.1 % (24.0-44.0); MEAN CORPUSCULAR HEMOGLOBIN 29.1 pg (27.0-33.0); MEAN CORPUSCULAR HGB CONC 33.5 g/dl (32.0-36.5); MEAN CORPUSCULAR VOLUME 86.8 fl (80.0-96.0); MONO # 0.6 10^3/uL (0.0-0.8); NEUTROPHILS # 6.4 10^3/uL (1.5-8.5); NEUTROPHILS % 62.7 % (36.0-66.0); PLATELET COUNT, AUTOMATED 390 10^3/uL (150-450); RED BLOOD COUNT 4.71 10^6/uL (4.00-5.40); WHITE BLOOD COUNT 10.2 10^3/uL (4.0-10.0)
[2023-09-21 14:57] LABS: ALBUMIN 3.6 G/DL (3.2-5.2); ALKALINE PHOSPHATASE 110 U/L (46-116); ALT/SGPT 26 U/L (7.0-40); AST/SGOT 15 U/L (<34); BILIRUBIN,TOTAL 0.5 MG/DL (0.3-1.2); BLOOD UREA NITROGEN 12 MG/DL (9-23); CALCIUM LEVEL 8.4 MG/DL (8.5-10.1); CARBON DIOXIDE LEVEL 31 MMOL/L (20-31); CHLORIDE LEVEL 102 MMOL/L (98-107); CHOLESTEROL LEVEL 169 MG/DL (<200); CHOLESTEROL RISK RATIO 5.26 (<5); CREATININE FOR GFR 0.78 MG/DL (0.55-1.30); GLOMERULAR FILTRATION RATE > 60.0 (>58); GLUCOSE, FASTING 76 MG/DL (60-100); HDL CHOLESTEROL 32.1 MG/DL (>40); LDL CHOLESTEROL 103.7 MG/DL (<100); NON-HDL-C 136.9 MG/DL; POTASSIUM SERUM 3.6 MMOL/L (3.5-5.1); SODIUM LEVEL 137 MMOL/L (136-145); TOTAL PROTEIN 7.5 G/DL (5.7-8.2); TRIGLYCERIDES LEVEL 166 MG/DL (<150)
[2023-09-21 14:59] LABS: THYROID STIMULATING HORMONE 3.524 uIU/ML (0.55-4.78)
[2023-09-21 15:00] LABS: FERRITIN 88.6 NG/ML (7.3-270.7); FREE T4 1.06 NG/DL (0.89-1.76)
[2023-09-21 15:14] LABS: HEMOGLOBIN A1c 5.4 % (4.0-6.0)
== END ==
LOC: M PLALAB 11:04
PROVIDERS: ATTEND Student in an Organized Health Care Education/Training Program
DX: I10 Essential (primary) hypertension (principal); R73.03 Prediabetes; Z71.3 Dietary counseling and surveillance; Z86.2 Personal history of diseases of the blood and blood-forming organs and certain disorders involving the immune mechanism; Z68.43 Body mass index [BMI] 50.0-59.9, adult

== ENCOUNTER → 2024-12-09 | Outpatient (CLI) | payer OTHER | LOC: M WHC 20:00 | PROVIDERS: ATTEND Family Medicine | DX: Z12.31 Encounter for screening mammogram for malignant neoplasm of breast (principal) ==

== ENCOUNTER → 2025-03-31 | Outpatient (CLI) | payer OTHER ==
[2025-03-31 13:55] LABS: PLATELET COUNT, AUTOMATED 431 10^3/uL (150-450)
[2025-03-31 14:08] LABS: ESTIMATED AVERAGE GLUCOSE 97.0 MG/DL (60-110)
[2025-03-31 14:30] LABS: ALT/SGPT 13.0 U/L (7.0-40); AST/SGOT 18.0 U/L (<34); CALCIUM LEVEL 8.9 MG/DL (8.5-10.1); CARBON DIOXIDE LEVEL 32.0 MMOL/L (20-31); CHLORIDE LEVEL 102.0 MMOL/L (98-107); CHOLESTEROL LEVEL 195.0 MG/DL (<200); CHOLESTEROL RISK RATIO 5.21 (<5); CREATININE FOR GFR 0.86 MG/DL (0.55-1.30); GLOMERULAR FILTRATION RATE 82.3 (>51); LDL CHOLESTEROL 141.6 MG/DL (<100); NON-HDL-C 157.6 MG/DL; POTASSIUM SERUM 3.9 MMOL/L (3.5-5.1); SODIUM LEVEL 143.0 MMOL/L (136-145); TRIGLYCERIDES LEVEL 80.0 MG/DL (<150)
[2025-03-31 14:33] LABS: FREE T4 1.11 NG/DL (0.89-1.76)
== END ==
LOC: M PLALAB 10:25
DX: E78.2 Mixed hyperlipidemia (principal); I10 Essential (primary) hypertension; Z13.1 Encounter for screening for diabetes mellitus